=== PATIENT | male | born 1950 | race Caucasian/White ===

== ENCOUNTER → 2019-07-06 | Outpatient (CLI) | payer MEDICARE ==
--- NOTE | 2019-07-06 17:34 | CT ---
EXAMINATION TYPE: CT pelvis wo con And right hip CT scan DATE OF EXAM: 07/06/2019 COMPARISON: None HISTORY: right hip pain. patient walked into door last fall reinjuring hip from [address] DLP: 470 mGycm Automated exposure control for dose reduction was used. Multiple axial sections were obtained from the iliac crest to the subtrochanteric femur without contr ast. There is multiple screws fixing the right iliac bone. Sacroiliac joints are intact. There are screws fixing the right superior and inferior pubic ramus. There are screws fixing the posterior right aceta bulum. There is large area of destructive changes involving most of the right acetabulum. This measur es 7 x 5 cm. Destruction extends to the hip joint. No acute displaced fracture seen. There is no free fluid in the pelvis. There is no evidence of a pelvic mass. Bladder distends smoothl y. The lower lumbar spine appears intact. There is narrowing of L4-5 disc space with spurring. 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 Previous surgery. Lower lumbar spine spondylotic changes. No femoral fracture seen. No displaced ac dain fracture seen.
== END | disposition home or self-care (01) ==
LOC: RADCTMAIN 16:26
PROVIDERS: ATTEND Orthopaedic Surgery
DX: M25.551 Pain in right hip (principal); R93.7 Abnormal findings on diagnostic imaging of other parts of musculoskeletal system; Z98.890 Other specified postprocedural states
CPT/HCPCS: 72192

== ENCOUNTER → 2019-09-06 | Outpatient (CLI) | payer MEDICARE ==
--- NOTE | 2019-09-06 13:50 | NM ---
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 Images acq uired 3 hours post injection. FINDINGS: Abnormal foci of increased signal within the region of the right acetabulum and ischium compatible wi th underlying lesions or infection. No additional foci of abnormal increased uptake noted. Degenerati ve uptake about the shoulders, sternoclavicular joints and left foot as well as the lower lumbar spin e. IMPRESSION: Abnormal foci of increased signal within the region of the right acetabulum and ischium compatible wi th underlying lesions or infection.
== END | disposition home or self-care (01) ==
LOC: RADNMMAIN 08:52
PROVIDERS: ATTEND Internal Medicine Hematology & Oncology
DX: R94.8 Abnormal results of function studies of other organs and systems (principal); Z88.0 Allergy status to penicillin
CPT/HCPCS: 78306; A9503

== ENCOUNTER → 2024-05-17 | Outpatient (CLI) | payer MEDICARE ==
[2024-05-17 15:16] LABS: ALT 21 U/L (10-49); AST 20 U/L (14-35); Albumin 3.9 g/dL (3.8-4.9); Albumin/Globulin Ratio 1.44 Ratio (1.60-3.17); Alkaline Phosphatase 77 U/L (41-126); BUN/Creat Ratio 21.38 Ratio (12.00-20.00); Blood Urea Nitrogen 17.1 mg/dL (9.0-27.0); Calcium 8.8 mg/dL (8.7-10.3); Carbon Dioxide 27.5 mmol/L (21.6-31.8); Chloride 105 mmol/L (96-109); Globulin 2.7 g/dL (1.6-3.3); Glucose 90 mg/dL (70-110); LDH 148 U/L (120-246); Potassium 4.2 mmol/L (3.5-5.5); Sodium 141 mmol/L (135-145); Total Bilirubin 0.3 mg/dL (0.3-1.2); Total Protein 6.6 g/dL (6.2-8.2)
[2024-05-17 15:48] LABS: HCT 45.1 % (39.6-50.0); HGB 14.8 g/dL (13.0-17.0); MCH 30.5 pg (27.0-32.0); MCHC 32.8 g/dL (32.0-37.0); MCV 92.8 FL (80.0-97.0); Mean Platelet Volume 10.7 FL (9.5-12.2); NRBC Per 100 WBC 0 X 10*3/uL (0.00-0.01); Platelet Count 223 X 10*3/uL (140-440); RBC 4.86 X 10*6/uL (4.40-5.60); RDW 13.5 % (11.5-14.5); WBC 6.85 X 10*3/uL (4.50-10.00)
[2024-05-17 16:15] LABS: Basophils # (A) 0.04 X 10*3/uL (0.00-0.10); Basophils % (A) 0.6 %; Eosinophils % (A) 1.5 %; Lymphocytes % (A) 46.7 %; Monocytes # (A) 0.67 X 10*3/uL (0.20-1.00); Monocytes % (A) 9.8 %; Neutrophils # (A) 2.82 X 10*3/uL (1.80-7.70); Neutrophils % (A) 41.1 %; RBC Morphology Normal (Normal)
== END | disposition home or self-care (01) ==
LOC: LABWHC1 10:05
PROVIDERS: ATTEND Nurse Practitioner
DX: C91.10 Chronic lymphocytic leukemia of B-cell type not having achieved remission (principal); C83.30 Diffuse large B-cell lymphoma, unspecified site; C85.90 Non-Hodgkin lymphoma, unspecified, unspecified site
CPT/HCPCS: 36415; 80053; 83615; 85025

== ENCOUNTER → 2024-05-31 | Outpatient (CLI) | payer MEDICARE | END | disposition home or self-care (01) | LOC: LABWHC1 12:50 | PROVIDERS: ATTEND Internal Medicine Hematology | DX: C83.30 Diffuse large B-cell lymphoma, unspecified site (principal); C91.10 Chronic lymphocytic leukemia of B-cell type not having achieved remission; C34.91 Malignant neoplasm of unspecified part of right bronchus or lung; R63.4 Abnormal weight loss; Z92.22 Personal history of monoclonal drug therapy; Z92.21 Personal history of antineoplastic chemotherapy | CPT/HCPCS: 36415; 84443 ==